=== PATIENT | female | born 1970 | race Caucasian/White ===

== ENCOUNTER 2017-01-17 18:57 | Observation (INO) | payer BC ==
[~2017-01-17] VITALS: Ht 160 cm; Wt 139.9 kg
[~2017-01-17 18:57] MED LIST: CLONAZEPAM1 M1 PO; DIOVAN320 MG PO; FIORICET,ESG1 TABLET PO; IBUPROFEN800 MG PO; KLONOPIN1 MG PO; LIDODERM 5% P1 PATCH TD; LIPITOR; LIPITOR40 MG PO; METOPROLOL TART50 MG PO; MOTRIN800 MG PO; NAPROSYN500 MG PO; NEURONTIN300 MG PO; NORCO 5/3251 TABLET PO; NORCO 7.5/321 TABLET PO; NORVASC10 MG PO; PERCOCET 5/31 TABLET PO; PREDNISONE20 MG PO; PROTONIX40 MG PO; PROZAC40 MG PO; SKELAXIN800 MG PO; ULTRAM50 MG PO; VALIUM5 MG PO; VYTORIN; ZOFRAN ODT4 MG PO
[2017-01-17 20:21] LABS: EOSINOPHIL (%) 0.9 % (0-5); EOSINOPHIL COUNT 0.1 K/uL (0-0.3); HEMATOCRIT 43.6 % (36.0-46.0); IMMATURE GRANULOCYTE (%) 0.6 % (0.0-0.7); IMMATURE GRANULOCYTE COUNT 0.1 K/uL; INSTRUMENT ABS NEUTROPHIL CT 5.8 K/uL; LYMPHOCYTE COUNT 1.7 K/uL (1.0-2.8); MCH 29.3 PG (29.0-34.0); MCV 88.6 FL (83-99); MEAN PLAT.VOLUME 10.1 uM^3 (9.5-12.4); MONOCYTE (%) 6.1 % (3-12); MONOCYTE COUNT 0.5 K/uL (0-0.8); NEUTROPHIL (%) 71.3 % (45-76); NEUTROPHIL COUNT 5.8 K/uL (1.8-6.4); PLATELET COUNT 241 K/uL (156-360); RBC DIS.WIDTH-CV 12.9 % (11.8-14.6); RBC DIS.WIDTH-SD 41.6 % (39-53); RED BLOOD COUNT 4.92 M/uL (3.80-5.20); WHITE BLOOD COUNT 8.2 K/uL (4.1-10.2)
[2017-01-17 20:24] LABS: CHLORIDE 105 mEq/L (99-109); SODIUM 138 mEq/L (136-147)
[2017-01-17 20:26] LABS: GLUCOSE 96 mg/dL (70-99)
[2017-01-17 20:27] LABS: ANION GAP 8 MEQ/L (2-14)
[2017-01-17 20:28] LABS: TOTAL BILIRUBIN 0.4 mg/dL (0.0-1.0)
[2017-01-17 20:29] LABS: ALKALINE PHOSPHATASE 74 IU/L (3-129)
[2017-01-17 20:30] LABS: GFR ESTIMATE (CALCULATED) > 59 mL/min/
[2017-01-17 20:31] LABS: UREA NITROGEN (BUN) 17 mg/dL (9-23)
[2017-01-17 20:35] LABS: TROP-I INTERPRETATION NEGATIVE; TROPONIN-I < 0.01 ng/mL (0.0-0.30)
[2017-01-17 20:39] LABS: QUANTITATIVE HCG < 4.0 MIU/ML
[2017-01-17] MEDS ORDERED: NEURONTIN600 MG PO (22:18)
[2017-01-17] MEDS ORDERED: CLONAZEPAM1 MG PO ×2 (22:18)
[2017-01-17] MEDS ORDERED: ONE-A-DAY ESSE1 EAC1 PO (22:19)
[2017-01-17] MEDS ORDERED: LO-DOSE ASPIRIN81 M2 PO (22:19)
[2017-01-17] MEDS ORDERED: BUSPAR15 MG PO (22:20)
[2017-01-18 03:06] VITALS: BP 136/69
[2017-01-18 04:41] LABS: TROP-I INTERPRETATION NEGATIVE; TROPONIN-I < 0.01 ng/mL (0.0-0.30)
[2017-01-18 05:04] LABS: HDL CHOLESTEROL 59 MG/DL (Desirable>=50); LDL CHOLESTEROL 186 mg/dL (Desirable<100); NON-HDL CHOLESTEROL 199 mg/dL (Desirable<160); TOTAL CHOLESTEROL 258 mg/dL (Desirable<200); TRIGLYCERIDES 63 MG/DL (Normal: <150)
[2017-01-18 07:21] LABS: Estimated Average Glucose 105 mg/dL (70-123); HEMOGLOBIN A1c (GLYCOHEMOGLOB) 5.3 % HGB (Below 5.7)
[2017-01-18 09:19] VITALS: BP 112/56
[2017-01-18 09:55] LABS: TROP-I INTERPRETATION NEGATIVE; TROPONIN-I < 0.01 ng/mL (0.0-0.30)
[2017-01-18 12:23] VITALS: BP 102/53
[2017-01-18 16:09] VITALS: BP 104/51
== END 2017-01-18 17:27 | disposition home or self-care (01) ==
LOC: EME → EDBD 18:57 → EDOF 01-18 00:04 → 5WEST 01-18 02:47
PROVIDERS: Emergency Medicine; Internal Medicine
DX: R07.9 Chest pain, unspecified (principal); F41.9 Anxiety disorder, unspecified; E78.5 Hyperlipidemia, unspecified; E66.01 Morbid (severe) obesity due to excess calories; Z79.82 Long term (current) use of aspirin; F32.9 Major depressive disorder, single episode, unspecified; I11.9 Hypertensive heart disease without heart failure; M25.512 Pain in left shoulder; Z68.43 Body mass index [BMI] 50.0-59.9, adult
CPT/HCPCS: 71020; 71275; 73030; 80053; 80061; 83036; 84484; 84702; 85025; 93005; 93306; 99281; 99284; G0378; J1200; J2930; J3010; J7030

== ENCOUNTER 2017-03-26 22:19 | Emergency (ER) | payer BC ==
[~2017-03-26] VITALS: Ht 160 cm; Wt 138.0 kg
[~2017-03-26 22:19] MED LIST changes: +BUSPAR15 MG PO; +CLONAZEPAM1 MG PO; +LO-DOSE ASPIRIN81 M2 PO; +NEURONTIN600 MG PO; +ONE-A-DAY ESSE1 EAC1 PO
[2017-03-26 22:41] LABS: ADD MIUA? YES; BILIRUBIN SMALL; BLOOD NEGATIVE; COLOR YELLOW ((YELLOW)); GLUCOSE (STRIP) NEGATIVE; KETONES 5; LEUKOCYTES NEGATIVE; NITRITE NEGATIVE; PROTEIN (STRIP) 100; SPECIFIC GRAVITY 1.038 (1.000-1.030); UROBILINOGEN 0.2 MG/DL (0.2-1.0)
[2017-03-26 22:51] LABS: BACTERIA NONE SEEN /HPF; EPITHELIAL CELLS RARE /HPF; MUCUS 2+ /LPF; RED BLOOD CELLS 0-5 /HPF (0-5); UCUL ADDED? NO; WHITE BLOOD CELLS 0-5 /HPF (0-5)
[2017-03-27] MEDS ORDERED: SKELAXIN800 MG PO (01:32)
[2017-03-27 01:52] VITALS: BP 138/94
== END 2017-03-27 01:57 | disposition home or self-care (01) ==
LOC: EME 22:19 → RME 22:19
DX: M54.5 Low back pain (principal); I10 Essential (primary) hypertension; E78.5 Hyperlipidemia, unspecified; F32.9 Major depressive disorder, single episode, unspecified; F41.9 Anxiety disorder, unspecified; K21.9 Gastro-esophageal reflux disease without esophagitis; Q60.2 Renal agenesis, unspecified
CPT/HCPCS: 81003; 99281; 99284; J1885

== ENCOUNTER 2017-11-25 16:06 | Emergency (ER) | payer BC ==
[~2017-11-25] VITALS: Ht 160 cm; Wt 142.6 kg
[2017-11-25 16:37] LABS: HEMATOCRIT 41.2 % (36.0-46.0); HEMOGLOBIN 13.9 G/DL (11.9-15.5); MCHC 33.7 G/DL (30.0-36.0); MCV 88.8 FL (83-99); PLATELET COUNT 177 K/uL (156-360); RBC DIS.WIDTH-CV 12.8 % (11.8-14.6); RBC DIS.WIDTH-SD 41.4 % (39-53); RED BLOOD COUNT 4.64 M/uL (3.80-5.20); WHITE BLOOD COUNT 6.5 K/uL (4.1-10.2)
[2017-11-25 16:45] LABS: CHLORIDE 108 mEq/L (99-109); POTASSIUM 3.7 mEq/L (3.7-5.4); SODIUM 142 mEq/L (136-147)
[2017-11-25 16:47] LABS: GLUCOSE 103 mg/dL (70-99)
[2017-11-25 16:51] LABS: CREATININE 0.9 mg/dL (0.6-1.3); GFR ESTIMATE (CALCULATED) > 59 mL/min/
[2017-11-25 16:52] LABS: UREA NITROGEN (BUN) 15 mg/dL (9-23)
[2017-11-25 16:57] LABS: TROP-I INTERPRETATION NEGATIVE; TROPONIN-I < 0.01 ng/mL (0.0-0.30)
[2017-11-25 16:59] LABS: QUANTITATIVE HCG < 4.0 MIU/ML
[2017-11-25 18:51] VITALS: BP 136/82
== END 2017-11-25 19:00 | disposition home or self-care (01) ==
LOC: EME 16:06
PROVIDERS: Nurse Practitioner Family
DX: R55 Syncope and collapse (principal); R42 Dizziness and giddiness; R11.0 Nausea; R94.31 Abnormal electrocardiogram [ECG] [EKG]; F41.9 Anxiety disorder, unspecified; Z79.82 Long term (current) use of aspirin; Z91.041 Radiographic dye allergy status; Z88.8 Allergy status to other drugs, medicaments and biological substances
CPT/HCPCS: 70450; 71046; 80048; 84484; 84702; 85027; 93005; 99281; 99285; J2405; J7030